=== PATIENT | female | born 1985 | race Hispanic/Latino ===

== ENCOUNTER 2019-07-29 03:35 | Day surgery (SDC) | payer OTHER ==
[2019-07-29 04:10] VITALS: BP 113/66; TEMP 98.2; BMI 32.9
[2019-07-29 04:46] LABS: Amnisure Test No Membranes Rupture (No Rupture)
[2019-07-29 04:48] LABS: Amnisure Internal Control QC ACCEPTABLE (ACCEPTABLE)
[2019-07-29] MEDS ORDERED: hydrALAZINE 20 MG/ML VIAL SLOW IVP PRN (04:58)
[2019-07-29 05:46] LABS: Bilirubin Negative (Negative); Blood, Urine Negative (Negative); Clarity Clear (Clear); Glucose, Urine (Dipstick) Normal (Negative); Leukocyte Negative Leu/uL (Negative); Nitrite Negative (Negative); Protein, Urine (Dipstick) Negative (Neg-Trace); RBC/HPF 0-3 HPF (0-3); Squamous Epithelial 0-3 HPF (0-3); Urobilinogen Normal mg/dL (Less than 2); WBC/HPF 0-3 HPF (0-3)
[2019-07-29 05:48] LABS: Bacteria/HPF 1+ HPF (None Seen)
--- NOTE | 2019-07-29 09:52 | PRG ---
DATE OF SERVICE: 07/29/2019 PRIMARY TIME MOTION ANALYST: Dr. Calixto Arias. CHIEF COMPLAINT: Leakage of fluid. HISTORY OF PRESENT ILLNESS: The patient is a 34-year-old multiparous female with an intrauterine at 35 weeks and 5 days, presenting after waking up to wet underwear and was worried that she had ruptured her membranes. The patient has had no leaking since then. She denies any uterine contractions, vaginal bleeding, or any other stature complaints. PAST MEDICAL HISTORY: Noncontributory. PAST SURGICAL HISTORY: Noncontributory. OB LABORATORY DATA: Unavailable at time of dictation. REVIEW OF SYSTEMS: Per HPI. PHYSICAL EXAMINATION: VITAL SIGNS: Blood pressure 113/66, heart rate of 61, respiratory rate of 14, saturating 95% on room air, and temperature 98.2. GENERAL: She appears to be in no acute distress. She is alert, oriented, cooperative, and pleasant to interact with. HEAD: Normocephalic, atraumatic. LUNGS: Clear to auscultation bilaterally. HEART: Has regular rate and rhythm. ABDOMEN: Gravid and soft. EXTREMITIES: Nontender. Nonedematous. : Exam has been deferred. DIAGNOSTIC DATA: heart tracing shows a baseline in the 130s with moderate long-term variability, positive 15 x 15 accelerations, no decelerations. Tocometer is free of contractions. LABORATORY DATA: Urine; trace ketones, negative for nitrites, negative for leukocyte esterase, negative for white blood cells, has 1+ bacteria, no squamous cells. AmniSure test is negative. ASSESSMENT AND PLAN: The patient is a 34-year-old female, who came in for leakage of fluid. There is no evidence of rupture of membranes, however, the patient does have some evidence of urinary tract infection that may be contributing to some bladder irritability. She also could have had loss of fluid due to movement and urinary incontinence. The patient is being discharged home with Keflex 500 mg twice a day to be taken for 7 days. She is to follow up with her primary OB, Dr. Arias, as scheduled. Job ID: [id number]
== END 2019-07-29 06:00 | disposition home or self-care (01) ==
LOC: L&D/OP 03:35
PROVIDERS: ATTEND Family Medicine
DX: O99.89 Other specified diseases and conditions complicating pregnancy, childbirth and the puerperium (principal); N89.8 Other specified noninflammatory disorders of vagina; Z3A.35 35 weeks gestation of pregnancy
CPT/HCPCS: 81001; 84112

== ENCOUNTER 2019-08-12 07:43 | Day surgery (SDC) | payer OTHER ==
[2019-08-12 08:33] VITALS: BP 116/66; TEMP 98.2; BMI 34.5
[2019-08-12] MEDS ORDERED: hydrALAZINE 20 MG/ML VIAL SLOW IVP PRN (09:05)
[2019-08-12] MEDS ORDERED: Lactated Ringer's 1,000 ML IV SCH (09:15)
== END 2019-08-12 12:15 | disposition home or self-care (01) ==
LOC: L&D/OP 07:43
PROVIDERS: ATTEND Family Medicine
DX: O47.9 False labor, unspecified (principal); Z3A.00 Weeks of gestation of pregnancy not specified

== ENCOUNTER 2019-08-20 09:40 | Inpatient (IN) | payer MEDICAID, OTHER, SELFPAY ==
[2019-08-20] MEDS ORDERED: hydrALAZINE 20 MG/ML VIAL SLOW IVP PRN ×2 (10:25→17:27)
[2019-08-20] MEDS ORDERED: Promethazine HCl 25 MG/ML VIAL IM PRN ×2 (10:25→13:56)
[2019-08-20] MEDS ORDERED: Azithromycin 500 MG in Sodium Chloride 0.9% 250 ML 250 ML IVPB SCH (10:25)
[2019-08-20] MEDS ORDERED: Bicitra 30 ML UDCUP PO SCH (10:25)
[2019-08-20] MEDS ORDERED: Ondansetron PF 4 MG/2 ML Vial IVP PRN ×3 (10:25→17:27)
[2019-08-20] MEDS: Lactated Ringer's 1,000 ML IV SCH ×2 (10:25→12:52)
[2019-08-20] MEDS ORDERED: CEFAZOLIN 2 GM in Premix Bag 1 BAG IVPB SCH (10:25)
[2019-08-20 10:42] VITALS: BMI 33.6
[2019-08-20 10:44] LABS: Hemoglobin 13.8 g/dL (12.0-16.0); Mean Corpuscular Hemoglobin 28.7 pg (27.0-31.0); Mean Corpuscular Volume 84.5 fL (78.0-98.0); Mean Platelet Volume 10.5 fL (7.4-10.4); Platelet Count 137 thou/uL (130-400); RBC Distribution Width 13.8 % (11.5-14.5); Red Blood Cell (RBC) Count 4.82 mill/uL (4.20-5.40); White Blood Cell (WBC) Count 7.5 thou/uL (4.8-10.8)
[2019-08-20] MEDS ORDERED: Bicitra 30 ML UDCUP ONE (10:56)
[2019-08-20 11:19] LABS: HBSAg Index 0.18 S/CO (0-0.99); Hep B Surf Ag Non-Reactive S/CO (NonReactive); Syphilis Antibody Nonreactive (Nonreactive); Syphilis Antibody Index 0.04 S/CO (<1.00 Non-Reactive)
[2019-08-20] MEDS ORDERED: Ketorolac Tromethamine 30 MG/ML VIAL IVP PRN (13:56)
[2019-08-20] MEDS ORDERED: Naloxone HCl 0.4 mg/ml Vial IVP PRN ×2 (13:56)
[2019-08-20] MEDS ORDERED: Naloxone HCl 0.4 mg/ml Vial IV PRN (13:56)
[2019-08-20] MEDS ORDERED: HYDROmorphone 2 MG/ML VIAL SLOW IVP PRN (13:56)
[2019-08-20] MEDS ORDERED: Ondansetron HCl/PF 4 MG/2 ML Vial IVP PRN (13:56)
[2019-08-20] MEDS ORDERED: Promethazine HCl 25 MG SUPP PR PRN (13:56)
[2019-08-20] MEDS ORDERED: Meperidine HCl/PF 25 MG/ML VIAL SLOW IVP PRN (13:56)
[2019-08-20] MEDS ORDERED: L&D-Morphine 4 MG/ML VIAL SLOW IVP PRN (13:56)
[2019-08-20] MEDS ORDERED: diphenhydrAMINE 50 MG/ML VIAL IVP PRN (13:56)
[2019-08-20] MEDS ORDERED: Communication Order-Pharmacy FS SCH (14:00)
[2019-08-20] MEDS ORDERED: Ketorolac Tromethamine 30 MG/ML VIAL IVP SCH (14:00)
[2019-08-20] MEDS ORDERED: Oxytocin 10 UNITS/ML VIAL ONE (14:10)
[2019-08-20] MEDS ORDERED: MORPHINE 5 MG/10 ML PF VIAL ONE (14:10)
[2019-08-20] MEDS ORDERED: ePHEDrine/0.9% NaCl/PF SYRINGE 50 mg/10 ml ONE (14:11)
[2019-08-20] MEDS ORDERED: NS / Oxytocin 40 units/1000ml 1,000 ML ONE (16:39)
[2019-08-20] MEDS ORDERED: Ketorolac Tromethamine 30 MG/ML VIAL ONE (17:24)
[2019-08-20] MEDS ORDERED: diphenhydrAMINE 25 MG CAP PO PRN (17:27)
[2019-08-20] MEDS ORDERED: NS / Oxytocin 40 units/1000ml 1,000 ML IV SCH (17:27)
[2019-08-20] MEDS ORDERED: Adacel (T-DAP) 0.5 ML SYRINGE IM ONE (17:27)
[2019-08-20] MEDS ORDERED: Lanolin Ointment 7 GM TUBE TOP PRN (17:27)
[2019-08-20] MEDS ORDERED: Bisacodyl 10 MG SUPP PR PRN (17:27)
[2019-08-20] MEDS: Docusate Calcium (SURFAK) 240 MG CAP PO SCH (21:29)
[2019-08-20] MEDS: Simethicone Chewable 80 MG TAB PO PRN (21:29)
[2019-08-20] MEDS: Ketorolac Tromethamine 30 MG/ML VIAL IVP SCH (22:57)
[2019-08-20] MEDS: Ferrous Sulfate 325 MG TAB PO SCH (22:58)
[2019-08-21] MEDS ORDERED: Meperidine HCl/PF 25 MG/ML VIAL IM PRN (02:00)
[2019-08-21] MEDS ORDERED: HYDROcodone/Acetaminophen 5/325 mg Tablet PO PRN (02:00)
[2019-08-21] MEDS: Ketorolac Tromethamine 30 MG/ML VIAL IVP SCH ×2 (05:04→09:23)
[2019-08-21] MEDS: Simethicone Chewable 80 MG TAB PO PRN (05:04)
[2019-08-21 06:11] LABS: Hemoglobin 12.7 g/dL (12.0-16.0); Mean Corpuscular HGB CONC 33.8 g/dL (32.0-36.0); Mean Corpuscular Hemoglobin 28.4 pg (27.0-31.0); Mean Platelet Volume 10.3 fL (7.4-10.4); Platelet Count 129 thou/uL (130-400); RBC Distribution Width 13.8 % (11.5-14.5); Red Blood Cell (RBC) Count 4.47 mill/uL (4.20-5.40); White Blood Cell (WBC) Count 7.7 thou/uL (4.8-10.8)
[2019-08-21] MEDS: Ferrous Sulfate 325 MG TAB PO SCH ×2 (09:23→23:03)
[2019-08-21] MEDS: HYDROcodone/Acetaminophen 5/325 mg Tablet PO PRN ×3 (09:39→20:29)
[2019-08-21] MEDS: Prenatal Vitamin 1 TAB PO SCH (09:39)
[2019-08-21] MEDS: Docusate Calcium (SURFAK) 240 MG CAP PO SCH ×2 (09:39→20:30)
[2019-08-21] MEDS: Ibuprofen 800 MG TAB PO SCH ×2 (14:09→20:29)
[2019-08-22] MEDS: HYDROcodone/Acetaminophen 5/325 mg Tablet PO PRN ×4 (04:15→21:21)
[2019-08-22] MEDS: Ibuprofen 800 MG TAB PO SCH ×3 (04:15→21:20)
[2019-08-22] MEDS: Docusate Calcium (SURFAK) 240 MG CAP PO SCH ×2 (09:00→21:20)
[2019-08-22] MEDS: Prenatal Vitamin 1 TAB PO SCH (09:00)
[2019-08-22] MEDS: Simethicone Chewable 80 MG TAB PO PRN ×2 (09:01→21:20)
[2019-08-22] MEDS: Ferrous Sulfate 325 MG TAB PO SCH ×2 (09:02→21:22)
[2019-08-23] MEDS: Ibuprofen 800 MG TAB PO SCH ×2 (05:59→13:35)
[2019-08-23] MEDS: HYDROcodone/Acetaminophen 5/325 mg Tablet PO PRN (06:00)
[2019-08-23 08:00] VITALS: BP 95/53; TEMP 97.9
[2019-08-23] MEDS: Docusate Calcium (SURFAK) 240 MG CAP PO SCH (09:10)
[2019-08-23] MEDS: Prenatal Vitamin 1 TAB PO SCH (09:10)
[2019-08-23] MEDS: Ferrous Sulfate 325 MG TAB PO SCH (09:11)
[2019-08-23] MEDS: Simethicone Chewable 80 MG TAB PO PRN (13:47)
--- NOTE | 2019-08-26 04:28 | OP ---
DATE OF PROCEDURE: 08/20/2019 RESIDENT SURGEON: Autumn Zeng DO PROCEDURE PERFORMED: Repeat low-transverse . PREOPERATIVE DIAGNOSES: 1. Term intrauterine . 2. Previous section. 3. Gestational diabetes, diet controlled. POSTOPERATIVE DIAGNOSES: 1. Term intrauterine , delivered. 2. Previous section. ANESTHESIA: Spinal. INDICATIONS: This is a 34-year-old G3, P1-0-1-1 at 39 weeks gestation, who presents for a scheduled repeat . PROCEDURE IN DETAIL: After risks, benefits, and alternatives were discussed with the patient, she gave informed consent. Preoperative antibiotics included cefazolin 2 g IV. The patient was taken to the operating room and spinal anesthesia was initiated. She was placed in the supine position with a left tilt and prepped and draped in the usual sterile fashion. A Pfannenstiel incision was made with a scalpel and carried down to the level of the fascia, which was sharply nicked. The fascial cut was extended bilaterally with Christianson scissors. Inferior and superior edges of the cut fascial edges were elevated with Domenica clamps. Underlying rectus muscles were sharply and bluntly dissected free. The recti were divided digitally and retracted manually. The peritoneum was entered bluntly and retracted manually. Bladder blade was placed. Bladder flap was created with Metzenbaum scissors. A low transverse score was made with a scalpel and the uterus was entered in the midline with a scalpel. Clear fluid was seen. Hysterotomy was extended manually. The infant was noted to be vertex and was easily delivered by fundal pressure. The cord was clamped and cut and grossly normal. Male infant was handed to waiting nurse. Cord blood was obtained. Placenta was manually extracted and found to be intact with 3-vessel cord, and discarded. Uterus was externalized and the endometrium was curetted with a dry lap. The bladder blade was placed and the uterus was closed with a running locking #1 Monocryl followed by several [id number] stitches for hemostasis. Seprafilm was then placed and the abdomen was irrigated with saline and suctioned free of clots. The uterus was internalized and the hysterotomy was again noted to be hemostatic. The peritoneum was brought together using 3-0 Vicryl. The fascia was closed with a running nonlocking 0 PDS suture. The subcutaneous tissue was irrigated and bleeders were cauterized. The subcutaneous tissue was then brought together using 2-0 plain gut. The skin was approximated with lora and pressure dressing was placed. All counts were correct. The patient tolerated the procedure well, and was taken to the recovery room in stable condition. ESTIMATED BLOOD LOSS: 696 mL. COMPLICATIONS: None. SPECIMENS: Cord blood was sent to lab for blood type. FINDINGS: Grossly normal male infant with Apgars of 9 and 10 at 1 and 5 minutes respectively. Grossly normal placenta with 3-vessel cord discarded. DRAINS: Davis to gravity, draining clear urine. Job ID: [id number]
== END 2019-08-23 16:45 | disposition home or self-care (01) | DRG 788 ==
LOC: L&D 09:40 → 3SW 17:50
PROVIDERS: ADMIT Family Medicine; ATTEND Family Medicine
PROC: 10D00Z1 Extraction of Products of Conception, Low, Open Approach (ICD-10-PCS; principal; 2019-08-20)
DX: O24.420 Gestational diabetes mellitus in childbirth, diet controlled (principal); O99.824 Streptococcus B carrier state complicating childbirth; O34.211 Maternal care for low transverse scar from previous cesarean delivery; Z3A.39 39 weeks gestation of pregnancy; Z37.0 Single live birth
CPT/HCPCS: 36415; 51702; 85027; 86780; 86850; 86900; 86901; 87340; J0456; J0690; J1885; J2274; J2590; J7050

== ENCOUNTER 2025-07-22 11:30 | Emergency (ER) | payer MEDICAID, SELFPAY ==
[2025-07-22] MEDS ORDERED: diphenhydrAMINE 50 MG/ML VIAL ONE (13:19)
[2025-07-22] MEDS ORDERED: predniSONE 20 MG TAB ONE (13:20)
== END 2025-07-22 15:10 | disposition home or self-care (01) ==
LOC: ERS 11:30
DX: H81.13 Benign paroxysmal vertigo, bilateral (principal)
CPT/HCPCS: 96372; 99283; J1200; J7512